=== PATIENT | female | born 1945 | race Hispanic/Latino ===

== ENCOUNTER 2017-09-26 11:53 | Outpatient (CLI) | payer MEDICARE, OTHER ==
--- NOTE | 2017-09-26 13:19 | Mammography Report ---
BONE DENSITY STUDY: Postmenopausal osteoporosis screening. DEFINITIONS: BMD = Bone Mineral Density T-score = BMD related to mean peak bone mass of young adult (mean expressed in Standard Deviation) Z-score = Age matched BMD expressed in SD World Health Organization (WHO) Diagnostic Criteria Normal T-score > -1 SD Osteopenia T-score between -1 and -2.4 SD Osteoporosis T-score -2.5 SD or below FINDINGS: The weighted average BMD of lumbar spine L1-L4 is 1.190 with a T-score of 1.3. The weighted average BMD of the left hip is 0.814 with a T-score of -1.0. Comparison to prior examination in 2015 demonstrates generalized mild improvement in the mineralization of the lumbar spine with minimal worsening in the average left hip score. IMPRESSION: The patient's average T-score is diagnostic for osteopenia and average relative risk for fracture. NOTE: BMD is not the only risk factor for fracture; also consider factors such as the patient's age, risk of falling, previous osteoporotic fracture, family history of osteoporotic fractures, current smoker, and low body weight. Landrum's triangle is a region of interest in femur, predominantly of trabecular bone. It is not a true anatomic site, and [facility] does not recommend its use clinically.
== END 2017-09-26 11:54 | disposition home or self-care (01) ==
LOC: SPVWC 11:53
PROVIDERS: ATTEND Internal Medicine
DX: Z13.820 Encounter for screening for osteoporosis (principal); F17.200 Nicotine dependence, unspecified, uncomplicated; Z78.0 Asymptomatic menopausal state
CPT/HCPCS: 77080

== ENCOUNTER 2019-01-28 10:49 | Day surgery (SDC) | payer MEDICARE ==
[2019-01-28] MEDS ORDERED: LACTATED RINGERS 1,000 ML ONE (11:12)
[2019-01-28] MEDS ORDERED: TRANSDERM-SCOP TD ONE (11:58)
[2019-01-28] MEDS ORDERED: XYLOCAINE MPF 2% ONE (12:01)
[2019-01-28] MEDS ORDERED: SUBLIMAZE ONE (12:01)
[2019-01-28] MEDS ORDERED: DIPRIVAN 10 MG/ML IV ONE (12:02)
[2019-01-28] MEDS ORDERED: ANCEF/STERILE WATER 2 GM/20 ML IV NR (12:03)
[2019-01-28] MEDS ORDERED: SUBLIMAZE IV PRN (12:03)
--- NOTE | 2019-01-28 12:04 | Anesthesia Consultation ---
Anesthesia Consult and Med Hx Date of service: 01/28/19 - Airway Anesthetic Teeth Evaluation: Good ROM Head & Neck: Adequate Mental/Hyoid Distance: Adequate Mallampati Class: Class II Intubation Access Assessment: Probably Good - Pulmonary Exam CTA: Yes - Cardiac Exam Cardiac Exam: RRR - Pre-Operative Health Status ASA Pre-Surgery Classification: ASA2 Proposed Anesthetic Plan: General - Pulmonary Hx Smoking: No Hx Sleep Apnea: No (MARTINA PRE SCREEN LOW RISK.) - Cardiovascular System Hx Hypertension: No Hx Heart Attack/AMI: No Hx Percutaneous Transluminal Coronary Angioplasty (PTCA): No - Central Nervous System CVA: No - Gastrointestinal Hx Gastroesophageal Reflux Disease: Yes (asymptomtic today) - Endocrine Hx Renal Disease: No Hx Liver Disease: No Hx Insulin Dependent Diabetes: No Hx Non-Insulin Dependent Diabetes: No Hx Hypothyroidism: Yes - Other Systems Hx Obesity: Yes - Additional Comments Anesthesia Medical History Comments: Hx PONV.
--- NOTE | 2019-01-28 12:04 | Anesthesia Day of Surgery ---
Anesthesia Day of Surgery - Day of Surgery Patient Examined: Yes Patient H&P Reviewed: Yes Patient is NPO: Yes
[2019-01-28] MEDS ORDERED: WATER FOR IRRIG STERILE IR ONE (12:37)
[2019-01-28] MEDS ORDERED: ZOFRAN ONE ×2 (12:44→13:48)
[2019-01-28] MEDS ORDERED: DECADRON ONE (12:44)
[2019-01-28] MEDS ORDERED: LACTATED RINGERS 1,000 ML IV SCH (13:00)
[2019-01-28] MEDS ORDERED: TRANSDERM-SCOP TD NR (13:00)
--- NOTE | 2019-01-28 13:03 | Discharge Summary ---
Short Stay Discharge Plan Activity: no restrictions, other Weight Bearing Status: Full Weight Bearing Diet: regular, low fat Special Instructions: other (inc fluids ) Follow up with: DEMAR NOLAN MD [Primary Care Provider] - 7 Days BECKIE BARTON MD [Staff Physician] - 14 Days
--- NOTE | 2019-01-28 13:05 | Post Operative Note ---
Date of procedure: 01/28/19 Pre-op diagnosis: pelvic pain Post-op diagnosis: same Findings: cystocele Procedure: cysto rpg Anesthesia: ANN Surgeon: BECKIE BARTON Estimated blood loss: none Pathology: none Condition: stable Disposition: PACU
--- NOTE | 2019-01-28 13:13 | Operative Report ---
PREOPERATIVE DIAGNOSES: Pelvic pain, groin pain, previous mesh with calcification. POSTOPERATIVE DIAGNOSIS: Pelvic pain, groin pain, previous mesh with calcification with moderate cystocele. PROCEDURE: Cystoscopy, retrograde. SURGEON: Dr. Justice. ANESTHESIA: General. FINDINGS: This is a woman with pelvic pain that started about 5 months ago. I could not palpate any mesh on exam. She has had previous pelvic mesh. She now presents for treatment. DESCRIPTION OF PROCEDURE: The patient was brought to the operating room and placed on the operating table. Following induction of anesthesia, placed in lithotomy position, prepped and draped in usual sterile fashion. Cystourethroscopy was carried out, which showed normal bladder epithelium. Bladder was well visualized. There were no biopsies needed. Retrograde showed small orifices with delicate and a little bit of tortuous collecting system and ureter on the right side, but there were no persistent filling defects. The patient tolerated the procedure well. Bimanual exam was normal. We did vaginoscopy. We did not see any erosion. You could see on the retrograde that there is a mesh, especially on the left side of the groin and pelvic area. The patient tolerated the procedure well. I discussed this with her . I think she should follow up with DIRECTOR OF SUSTAINABILITY and General Surgery to see if this can be contributing to her pain, brought to recovery in stable condition. JOB# [id number] JONAS/CHEIKH
--- NOTE | 2019-01-28 13:37 | Fluoroscopy Report ---
FLUOROSCOPY RETROGRADE UROGRAPHY HISTORY: Pelvic pain FINDINGS: 1.6 minutes of fluoroscopy time was provided by radiology during retrograde urography by minor young urologist. 6 fluoroscopic images are presented. The renal collecting systems are unremarkable bilat erally. No filling defect or abnormal dilatation is identified. 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 Please correlate with the procedural report by urology as needed. IMPRESSION: Unremarkable bilateral retrograde pyelograms. Signer Name: Phu Tran Jr, MD Signed: 01/28/2019 1:33 PM Workstation Name: [id number]
[2019-01-28] MEDS ORDERED: ZOFRAN IV ONE (13:51)
[2019-01-28 14:17] VITALS: BP 142/76
--- NOTE | 2019-01-28 16:09 | Post Anesthesia Evaluation ---
- Post Anesthesia Evaluation Patient Participated: Yes Airway Patent: Yes Stable Respiratory Function: Yes Nausea/Vomiting: No Temp > 96.8F: Yes Pain Manageable: Yes Adequeate Hydration: Yes Anesthesia Complications: No Block Receding Appropriately: Not Applicable Patient on Ventilator: No
== END 2019-01-28 14:26 | disposition home or self-care (01) ==
LOC: OR 10:49
PROVIDERS: ATTEND Urology
DX: R10.2 Pelvic and perineal pain (principal); N81.10 Cystocele, unspecified; G43.909 Migraine, unspecified, not intractable, without status migrainosus; E78.00 Pure hypercholesterolemia, unspecified; K21.9 Gastro-esophageal reflux disease without esophagitis; E66.9 Obesity, unspecified; E03.9 Hypothyroidism, unspecified; Z79.899 Other long term (current) drug therapy; Z98.49 Cataract extraction status, unspecified eye; Z88.8 Allergy status to other drugs, medicaments and biological substances; Z88.5 Allergy status to narcotic agent; Z90.49 Acquired absence of other specified parts of digestive tract; Z68.32 Body mass index [BMI] 32.0-32.9, adult; Z90.710 Acquired absence of both cervix and uterus; Z98.891 History of uterine scar from previous surgery; Z87.440 Personal history of urinary (tract) infections; Z72.89 Other problems related to lifestyle
CPT/HCPCS: 52005; 74420; 82803; C1758; J0690; J1100; J2405; J2704; J3010; J7120; Q9967